=== PATIENT | male | born 1950 | race Hispanic/Latino ===

== ENCOUNTER → 2017-10-25 | Day surgery (SDC) | payer MEDICARE, OTHER ==
[2017-10-22 08:46] LABS: BASOPHILS % 0.5 % (0.0-1.0); EOSINOPHILS # (AUTO) 0.2 (0.0-0.4); EOSINOPHILS % 3.2 % (0.0-6.0); HEMATOCRIT 38.3 % (38.2-49.6); LYMPHOCYTES # (AUTO) 1.9 (1.0-3.2); LYMPHOCYTES % 30.1 % (18.0-39.1); MEAN CORPUSCULAR HGB CONC 33.9 g/dL (31-35); MEAN CORPUSCULAR VOLUME 85.3 fL (81-99); MONOCYTES # (AUTO) 0.7 (0.2-0.8); MONOCYTES % 11.8 % (4.4-11.3); NEUTROPHILS # (AUTO) 3.4 (2.1-6.9); NEUTROPHILS % 54.1 % (38.7-80.0); PLATELET COUNT 170 x10e3/uL (140-360); RED BLOOD COUNT 4.49 x10e6/uL (4.3-5.7); RED CELL DISTRIBUTION WIDTH 12.7 % (11.7-14.4)
[~2017-10-25] MED LIST: ASPIR 8181 MG PO; CINNAMON500 MG PO; FENTANYL CITRATE/PF 100MCG/2 ML INJ ONE; FUROSEMIDE40 MG PO; GLUCOSAMINE 1,1 EACH PO; HYOSCYAMINE SULFATE 0.5 MG/ML AMP ONE; IRBESARTAN-HCT1 EACH PO; ISOSORBIDE MON120 MG PO; LEVOTHYROXINE75 MCG PO; LIDOCAINE HCL 2% LOCAL INJ 5 ML SDV VIAL INJ ONE; MIDAZOLAM HCL 2 MG/2 ML VIAL ONE; MONTELUKAST SOD10 MG PO; NEXIUM40 MG PO; OMEPRAZOLE40 MG PO; POTASSIUM PO; PROPOFOL IV EMULSION 10 MG/ML 50 ML VIAL ONE; SIMETHICONE PO; SUCRALFATE1 GM PO; VITAMIN C PO; VITAMIN D PO; Z.0.DEXILANT60 MG PO; Z.0.LASIX40 MG PO; Z.0.LEVOTHROID50 MCG PO; Z.0.NIASPAN1000 MG PO; Z.0.NORVASC10 MG PO; ZANTAC150 MG PO; ZYRTEC10 M3 PO; [UNRECOGNIZED DRUG - OTHER] PO; [UNRECOGNIZED DRUG - OTHER] PO; [UNRECOGNIZED DRUG - OTHER] PO; losartan PO
--- NOTE | 2017-10-25 09:48 | Operative Report ---
DATE OF PROCEDURE: October 25, 2017 REFERRING PHYSICIAN: Dr. Cody Pierce PROCEDURES PERFORMED 1. Esophagogastroduodenoscopy with biopsies. 2. Colonoscopy with polypectomy. INDICATIONS FOR EGD: Acid reflux. INDICATIONS FOR COLONOSCOPY: Colorectal cancer screening and personal history of colon polyps. MEDICATION: Patient was done under MAC. Please see anesthesiologist's note. PROCEDURE: With the patient in the left lateral decubitus position, the flexible fiberoptic Olympus gastroscope was introduced into the esophagus under direct visualization without any difficulty. The esophagus appeared to be grossly within normal limits. The scope was then advanced with ease into the stomach traversing a small sliding hiatal hernia. Mucosa overlying the antrum revealed some patchy erythema and low-grade edema, and biopsies were obtained and sent to stain for H. pylori. Multiple hyperplastic appearing polyps were noted in the body and some were partially excised with cold biopsy forceps. The pylorus appeared to be of normal contour and shape. It was intubated with ease. The scope was advanced all the way to the 2nd portion of the duodenum. The scope was then withdrawn slowly. Mucosa overlying the proximal 2nd portion and the duodenal bulb appeared to be within normal limits. The scope was then withdrawn back into the stomach and retroflexed. The mucosa overlying the fundus and the cardia appeared to be within normal limits. The scope was then straightened out. The stomach was decompressed. The scope was subsequently withdrawn. Patient tolerated the procedure well. IMPRESSION 1. Normal esophagus. 2. Small sliding hiatal hernia. 3. Gastritis, biopsied. Biopsies sent to stain for Helicobacter pylori. 4. Gastric polyps, body, some partially excised with a cold biopsy forceps. PLAN: Follow up histology. Omeprazole 40 mg 1 p.o. q.a.m. a.c. Patient was then turned around. After adequate lubrication of the anal canal, a flexible fiberoptic Olympus colonoscope was inserted into the rectum with ease and advanced all the way to the cecum. It was then withdrawn slowly. Mucosa overlying the cecum and ascending colon appeared to be within normal limits. Three polyps were hot biopsied from the transverse colon. Two polyps were hot biopsied from the descending colon. Diverticular disease was noted to involve the sigmoid colon. One polyp was hot biopsied from the sigmoid colon. The rectum appeared to be within normal limits. The scope was then retroflexed into the distal rectum and small internal hemorrhoids were noted, none of which was actively bleeding. The scope was then straightened out. The rectosigmoid area, as well as the distal rectal area were decompressed. The scope was subsequently withdrawn. Patient tolerated the procedure well. IMPRESSION 1. Transverse colon polyps, hot biopsied, times 3. 2. Descending colon polyps, hot biopsied, times 2. 3. Diverticulosis. 4. Sigmoid colon polyp, hot biopsied times 1. 5. Internal hemorrhoids, none actively bleeding. PLAN: Follow up histology. Initiate high-fiber and low-fat diet. Initiate high-fiber supplement. Patient will need a followup colonoscopy in 3 years. Job#: [id number] RI cc:COLTON PIERCE MD
== END | disposition home or self-care (01) ==
LOC: ENDO 06:34
PROVIDERS: ATTEND Internal Medicine Gastroenterology
DX: Z12.11 Encounter for screening for malignant neoplasm of colon (principal); K63.5 Polyp of colon; K31.7 Polyp of stomach and duodenum; K29.70 Gastritis, unspecified, without bleeding; K21.9 Gastro-esophageal reflux disease without esophagitis; K44.9 Diaphragmatic hernia without obstruction or gangrene; K57.30 Diverticulosis of large intestine without perforation or abscess without bleeding; K64.8 Other hemorrhoids; I10 Essential (primary) hypertension; Z01.810 Encounter for preprocedural cardiovascular examination; Z01.812 Encounter for preprocedural laboratory examination; Z79.82 Long term (current) use of aspirin
CPT/HCPCS: 36415; 43239; 45384; 85025; 88305; 88312; 93005; J1980; J2001; J2250; 45378

== ENCOUNTER 2018-11-24 19:34 | Emergency (ER) | payer MEDICARE, OTHER ==
[~2018-11-24] VITALS: Ht 177.8 cm; Wt 109.8 kg
[~2018-11-24 19:34] MED LIST changes: -FENTANYL CITRATE/PF 100MCG/2 ML INJ ONE; -HYOSCYAMINE SULFATE 0.5 MG/ML AMP ONE; -LIDOCAINE HCL 2% LOCAL INJ 5 ML SDV VIAL INJ ONE; -MIDAZOLAM HCL 2 MG/2 ML VIAL ONE; -PROPOFOL IV EMULSION 10 MG/ML 50 ML VIAL ONE
--- OUTSIDE RECORDS SUMMARY | 2018-11-24 19:39 | XMS REPORT | CCD ---
Author Author Auto Generated Organization [facility] Address Unknown Phone Unavailable Care Team Providers Care Creative Guru Name Role Phone Marie Dawkins CP Allergies, Adverse Reactions, Alerts Substance Reaction Status influenza virus vaccine, live, Active trivalent penicillins1 Coughing Active Shortness of breath pneumococcal vaccines Active 1spoke to Dr Ashton ([place]) & says that pt did not not have any swelling in the throat, only cough & SOB with Amoxicillin. Problem List Condition Effective Dates Status HTN - Hypertension Active Hypothyroidism Resolved Medications Medication Instructions Start Date End Date Status CIMZIA CIMZIA (Certolizumab Pegol) 04/25/2013 04/25/2013 Completed (Certolizumab Pegol) Prefilled syringe, 200 mg, Drug Prefilled syringe form: MISC, Route: SUB-Q, ONCALL, 04/25/13 10:00:00, Duration: 1 day, Stop date: 04/26/13 9:59:00 certolizumab 400 mg, 2 mL, Route: SUB-Q, Drug 05/23/2013 05/23/2013 Ordered form: DELIA NGUYỄN, Start date: 05/23/13 9:00:00, Stop date: 05/23/13 9:00:00Same as:Cimzia Non-Formulary CIMZIA CIMZIA (Certolizumab Pegol) 04/25/2013 04/25/2013 Completed (Certolizumab Pegol) Prefilled syringe, 200 mg, Drug Prefilled syringe form: MISC, Route: SUB-Q, ONCALL, 04/25/13 10:00:00, Duration: 1 day, Stop date: 04/26/13 9:59:00 certolizumab 400 mg, 2 mL, Route: SUB-Q, Drug 05/08/2013 05/08/2013 Ordered form: SOLN, ONCE, Start date: 05/08/13 10:00:00, Stop date: 05/08/13 10:00:00Same as:Cimzia Non-Formulary Vital Signs Most recent to oldest [Reference Range]: 1 Height 177.8 cm (04/24/2013 10:24:00) Temperature Oral [96.4-99.1 DegF] 98.2 DegF (04/25/2013 10:30:00) Systolic Blood Pressure [90-140 mmHg] 129 mmHg (04/25/2013 10:30:00) Diastolic Blood Pressure [60-90 mmHg] 72 mmHg (04/25/2013 10:30:00) Respiratory Rate [14-20 BRMIN] 18 BRMIN (04/25/2013 10:30:00) Peripheral Pulse Rate [60-100 bpm] 58 bpm *LOW* (04/25/2013 10:30:00) Weight 111.4 kg (04/24/2013 10:24:00)
--- OUTSIDE RECORDS SUMMARY | 2018-11-24 19:39 | XMS REPORT | CCD ---
Author Author Auto Generated Organization [facility] Address Unknown Phone Unavailable Care Team Providers Care Compressor Operator Portable Name Role Phone Marie Dawkins CP Allergies, [...]
--- OUTSIDE RECORDS SUMMARY | 2018-11-24 19:39 | XMS REPORT | Summary of Care ---
Author Organization Unknown Address Unknown Phone Unavailable Encounter [facility] Encntr_arthur(FIN) [id number] Date(s): 04/23/14 - 04/23/14 [facility] Outpatient Imaging - [address] [address] Discharge Disposition: Home Physician Attending: Barbara Dickinson MD Reason for Visit 611.1 - HYPERTROPHY OF Problem List Condition Effective Dates Status Health Status Informant HTN - Active Hypertension(Confirm ed) Hypothyroidism(Confi Resolved rmed) Allergies, Adverse Reactions, Alerts Substance Reaction Severity Status influenza virus vaccine, Active live, trivalent penicillins1 Coughing Active Shortness of breath pneumococcal vaccines Active 1spoke to Dr Ashton ([place]) & says that pt did not not have any swelling in the throat, only cough & SOB with Amoxicillin. Medications No data available for this section Medications Administered During Your Visit No data available for this section Immunizations No data available for this section Social History Social History Type Response
--- OUTSIDE RECORDS SUMMARY | 2018-11-24 19:39 | XMS REPORT | CCD ---
Author Author Auto Generated Organization [facility] Address Unknown Phone Unavailable Care Team Providers Care Batch Roller Operator Name Role Phone Simon Ashton RP Allergies, Adverse Reactions, Alerts Substance Reaction Status [...]
--- OUTSIDE RECORDS SUMMARY | 2018-11-24 19:39 | XMS REPORT | Summary of Care ---
Author Organization Unknown Address Unknown Phone Unavailable Encounter JOSE Piña(ALEXUS) [id number] Date(s): 01/16/14 - 02/14/14 [facility] [address] [address] [place] [address] - [facility] Discharge Disposition: Home Physician Attending: Marie Dawkins MD Reason for Visit 714.0 Vital Signs Most recent to 1 oldest [Reference Range]: Height 177 cm (01/16/14 9:12 AM) Weight 111 kg (01/16/14 9:12 AM) Body Mass Index 35.43 m2 (01/16/14 9:12 AM) Problem List Condition Effective Dates Status Health [...] only cough & SOB with Amoxicillin. Medications certolizumab 400 mg, 2 mL, Route: SUB-Q, Drug form: TG NGUYỄN, Start date: 01/16/14 9:00:0 0, Duration: 12 hr, Stop date: 01/16/14 20:59:00 Notes: Non-Formulary Start Date: 01/16/14 Stop Date: 01/16/14 Status: Completed certolizumab 400 mg, 2 mL, Route: SUB-Q, Drug form: TG NGUYỄN, Start date: 02/13/14 9:00:0 0, Duration: 12 hr, Stop date: 02/13/14 20:59:00 Notes: Non-Formulary Start Date: 02/13/14 Stop Date: 02/13/14 Status: Completed Medications Administered During Your Visit No data available for this section Immunizations No data available for this section Social History Social History Type Response
--- OUTSIDE RECORDS SUMMARY | 2018-11-24 19:39 | XMS REPORT | Continuity of Care Document ---
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 04/30/2015 [facility] [place] 714.0 Active 03/11/2014 [facility] 478.24=ABSCESS, RETROPHARYNGEAL Active 10/08/2012 [facility] RETROPHARYNGEAL ABSCESS Active 09/30/2012 [facility] HTN - Hypertension Active Problem 10/27/2012 [facility] [place],[facility] Hypothyroidism Resolved Problem 10/27/2012 [facility] [place],[facility] HTN - Hypertension Active Problem 10/25/2018 [facility] [place],[facility], [facility] [place] Hypothyroidism Resolved Problem 10/25/2018 [facility] [place],[facility], [facility] [place] RHEUMATOID ARTHRITIS Active [facility] PSORIATIC ARTHROPATHY Active [facility] Medications Medication Details Route Status Patient Instructions Ordering Provider Order Date Source certolizumab 400 mg, 2 mL, Route: SUB-Q, Drug form: ADELINE NGUYỄNALL, Start date: 02/13/14 9:00:00, Duration: 12 hr, Stop date: 02/13/14 20:59:00Notes: Non-Formulary Inactive 02/13/2014 [facility] certolizumab 400 mg, 2 mL, Route: SUB-Q, Drug form: ADELINE NGUYỄNALL, Start date: 01/16/14 9:00:00, Duration: 12 hr, Stop date: 01/16/14 20:59:00Notes: Non-Formulary Inactive 01/16/2014 [facility] certolizumab 400 mg, 2 mL, Route: SUB-Q, Drug form: SOLN, ONCALL, Start date: 01/02/14 9:00:00, Duration: 12 hr, Stop date: 01/02/14 20:59:00Notes: Non-Formulary No Longer Active 01/02/2014 [facility] certolizumab 400 mg, 2 mL, Route: SUB-Q, Drug form: SOLN, ONCALL, Start date: 12/19/13 9:00:00, Duration: 12 hr, Stop date: 12/19/13 20:59:00Notes: Non-Formulary Inactive 12/19/2013 [facility] certolizumab 400 mg, 2 mL, Route: SUB-Q, Drug form: SOLN, ONCALL, Start date: 08/15/13 9:00:00, Duration: 1 day, Stop date: 08/16/13 8:59:00Non-Formulary No Longer Active [place] 08/15/2013 [facility] certolizumab 400 mg, 2 mL, Route: SUB-Q, Drug form: SOLN, ONCALL, Start date: 07/18/13 9:00:00, Duration: 1 day, Stop date: 07/19/13 8:59:00Non-Formulary Inactive [place] 07/18/2013 [facility] certolizumab 400 mg, 2 mL, Route: SUB-Q, Drug form: SOLN, ONCALL, Start date: 06/20/13 9:30:00, Duration: 30 day, Stop date: 07/20/13 9:29:00Non-Formulary No Longer Active [place] 06/20/2013 [facility] certolizumab 400 mg, 2 mL, Route: SUB-Q, Drug form: SOLN, ONCE, Start date: 05/23/13 9:00:00, Stop date: 05/23/13 9:00:00Same as:Cimzia Non-Formulary Inactive [place] 05/23/2013 [facility] certolizumab 400 mg, 2 mL, Route: SUB-Q, Drug form: SOLN, ONCE, Start date: 05/08/13 10:00:00, Stop date: 05/08/13 10:00:00Same as:Cimzia Non-Formulary Inactive [place] 05/08/2013 [facility] CIMZIA (Certolizumab Pegol) Prefilled syringe CIMZIA (Certolizumab Pegol) Prefilled syringe, 200 mg, Drug form: MISC, Route: SUB- Q, ONCALL, 04/25/13 10:00:00, Duration: 1 day, Stop date: 04/26/13 9:59:00 Inactive [place] 04/25/2013 [facility] Allergies, Adverse Reactions, Alerts Substance Category Reaction Severity Reaction type Status Date Reported Comments Source influenza virus vaccine, live, trivalent Assertion Drug allergy Active [facility] penicillins<sup>1</sup> Assertion Coughing, Shortness of breath Drug allergy Active 1spoke to Dr Ashton (ID) & says that pt did not not have any swelling in the throat, only cough & SOB with Amoxicillin. [facility] pneumococcal vaccines Assertion Drug allergy Active [facility] Immunizations Immunization Date Given Site Status Last Updated Comments Source Results Order Name Results Value Reference Range Date Interpretation Comments Source Chest 2 views DX Chest 2 views DX EXAM: XR CHEST 2 VIEWS DATE: 10/22/2018 10:50 CDT INDICATION: - gerd, wheezing on auscultation ADDITIONAL INFORMATION: None. COMPARISON: Chest x-ray 08/08/2017 TECHNIQUE: PA and lateral chest radiographs. Number of images: 2 FINDINGS: Lines and tubes and hardware: None. Lungs: There is right lower lobe subtle increased linear density. Pleura: There is stable right apical pleural thickening. Pneumothorax: None Vascularity: Normal pulmonary vascularity.. Heart size: Normal. The mediastinal contours are normal. Bones: No acute bony abnormality is identified. Sternoxiphoid junction bony hypertrophy is seen. Soft Tissues: Unremarkable. IMPRESSION: 1. Right lower lobe subtle linear increased density may represent superimposition of pulmonary vessels and the right lower posterior rib versus subsegmental atelectasis and/or minimal airspace disease secondary to inflammation/infection. 2. Line(s), tube(s) and hardward as above. 10/22/2018 - - Read by: Branden Dowell MD Dictated Date/time: 10/22/18 11:46 Electronically Signed by: Branden Dowell MD 10/22/18 11:[address] [facility] Chest 2 views DX Chest 2 views DX EXAM: XR CHEST 2 VIEWS DATE: 08/08/2017 10:15 AM FULL SERVICE SUPERVISOR INDICATION: - R05 Cough COMPARISON: 12/19/2013 TECHNIQUE: PA and lateral chest radiographs FINDINGS: Lines, tubes and hardware: None. Lungs and pleura: No pulmonary or pleural based abnormality is identified. Pulmonary vascularity is normal. Heart and mediastinum: The heart size is normal for technique. The mediastinal contours are normal. Tortuosity of the descending thoracic aorta is noted. Bones: Multilevel degenerative disc disease with anterior osteophytes are noted. IMPRESSION: No acute cardiopulmonary abnormality. No significant change from 12/19/2013. 08/08/2017 - - Read by: Alexa Stapleton MD Dictated Date/time: 08/08/17 11:33 Electronically Signed by: Alexa Stapleton 08/08/17 11:[address] [facility] Spine lumbar wo contrast MRI Spine lumbar wo contrast MRI MRI LUMBAR SPINE WITHOUT CONTRAST 09/22/2016 1:47 PM FULL SERVICE SUPERVISOR COMPARISON: 04/27/2006 radiograph exam. TECHNIQUE: Sagittal T1, sagittal T2 with fat saturation, axial T1 and axial T2 images were obtained. No intravenous gadolinium was given. FINDINGS: The conus medullaris terminates at the L1 level. Mild dextrocurvature of the lumbar spine is present. T12-L1: Unremarkable. L1-L2: Unremarkable. L2-L3: No central canal stenosis. Disc bulge encroachment into the bilateral neural foramina is seen with mild to moderate bilateral foraminal stenosis, exerting minimal mass effect on the L2 exiting nerve roots. L3-L4: 3 mm disc bulge is seen with moderate ligamenta flava redundancy and mild central canal stenosis. Severe left foraminal stenosis and moderate right foraminal stenosis are present with corresponding mass effect on bilateral L3 nerve roots. L4-L5: Circumferential annular fissures are present. 5.7 mm disc bulge with severe ligamenta flava redundancy are present with severe thecal sac stenosis which measures 6 mm AP dimension. Moderate to severe bilateral foraminal stenosis is present with mass effect on the L4 nerve roots. L5-S1: Broad-based central 6 mm disc protrusion is present with mild central canal stenosis. Right foraminal and extraforaminal disc osteophyte complex is present with mass effect on the right S1 descending nerve root and severe right foraminal stenosis. Moderate to severe left foraminal stenosis is also present. IMPRESSION: 1. Multilevel disc degenerative disease and spondylosis. 2. L2-L3 mild to moderate bilateral foraminal stenosis. L3-L4 moderate right foraminal stenosis and severe left foraminal stenosis as above. 3. L4-L5 severe central canal stenosis and moderate to severe bilateral foraminal stenosis. 4. L5-S1 central disc protrusion with mild central canal stenosis. Right foraminal and extraforaminal disc osteophyte complex with severe right foraminal stenosis, right lateral recess stenosis, moderate to severe left foraminal stenosis with mass effect on the bilateral L5 nerve roots and right S1 nerve root. 09/22/2016 - - Read by: Nj Hollingsworth MD Dictated Date/time: 09/22/16 15:52 Electronically Signed by: Nj Hollingsworth MD 09/22/16 17:12 FINAL REPORT [facility] [place] Spine cervical wo contrast MRI Spine cervical wo contrast MRI MRI CERVICAL SPINE WITHOUT CONTRAST 09/22/2016 1:46 PM FULL SERVICE SUPERVISOR TECHNIQUE: Multiplanar multisequence imaging of the cervical spine was performed without administration of intravenous gadolinium. COMPARISON: No prior exam. FINDINGS: Multilevel disc desiccation is seen. C1-C2: Unremarkable. C2-C3: Moderate right facet osteoarthrosis with mild right foraminal stenosis. No central canal stenosis. C3-C4: Mild to moderate central canal stenosis is present due to ligamenta flava redundancy and approximately 3 mm disc bulge with mild cord indentation. Moderate left facet osteoarthrosis is present. Bilateral foraminal osteophytes are present, with severe left foraminal stenosis and moderate to severe right foraminal stenosis. C4-C5: Severe left facet osteoarthrosis with severe left foraminal stenosis. No central canal stenosis. C5-C6: Severe left facet osteoarthrosis with severe left foraminal stenosis. No central canal stenosis. C6-C7: Moderate left facet osteoarthrosis with 2 mm disc bulge. No central canal stenosis. Kham-sf-[id number] bilateral foraminal stenosis. C7-T1: 3.4 mm disc bulge is present with mild central canal stenosis. No direct cord indentation. Mild bilateral facet osteoarthrosis and foraminal osteophytes with moderate to severe bilateral foraminal stenosis. The cervical cord signal is unremarkable without MRI evidence of myelomalacia. IMPRESSION: 1. Multilevel disc degenerative disease and spondylosis. 2. Several levels of mild to moderate central canal stenosis and corresponding cord indentation, most prominent at the C3-C4 and C7-T1 levels. No MRI evidence of spinal cord myelomalacia. 3. Multilevel severe left foraminal stenosis. C3-C4 moderate to severe right foraminal stenosis, C7-T1 moderate to severe bilateral foraminal stenosis also present. 09/22/2016 - - Read by: Nj Hollingsworth MD Dictated Date/time: 09/22/16 15:53 Electronically Signed by: Nj Hollingsworth MD 09/22/16 17:30 FINAL REPORT FLAVIO Sebastian Breast Limited Uni US Breast Limited Uni US - DIGITAL MAMMO DX JONATHAN MA - BREAST LIMITED UNI US/L MALE BILATERAL DIGITAL DIAGNOSTIC MAMMOGRAM WITH CAD AND TARGETED LEFT ULTRASOUND: 11/26/2014 CLINICAL: Mastodynia. Current study was evaluated with a Computer Aided Detection (CAD) system. Comparison is made to exam dated: 04/23/2014 mammogram - [facility]. No significant masses, calcifications, or other findings are seen in either breast on the mammogram or targeted ultrasound. IMPRESSION: NEGATIVE, TARGETED ULTRASOUND NEGATIVE There is no mammographic or targeted sonographic evidence of malignancy. Follow-up with ACR/ACS guidelines. SUMMARY: I discussed these findings with the patient in person at the time of examination. María Gonzalez lpp/penrad:11/26/2014 16:01:58 Commercial Real Estate Broker: Marion GALEANA(Destini)(M), [facility] This exam was dictated and interpreted by [id number] for FLAVIO Sebastian. letter sent: Normal exam Mammogram BI-RADS: 1 Negative Ultrasound BI-RADS: 1 Negative 11/26/2014 - - Read by: María Gonzalez MD Dictated Date/time: 11/26/14 16:01 Electronically Signed by: María Gonzalez MD 11/26/14 16:01 FINAL REPORT FLAVIO Sebastian Digital Mammo DX Jonathan MA Digital Mammo DX Jonathan MA - DIGITAL MAMMO DX JONATHAN MA - BREAST LIMITED UNI US/L MALE BILATERAL DIGITAL DIAGNOSTIC MAMMOGRAM WITH CAD AND TARGETED LEFT ULTRASOUND: 11/26/2014 CLINICAL: Mastodynia. Current study was evaluated with a Computer Aided Detection (CAD) system. Comparison is made to exam dated: 04/23/2014 mammogram - [facility]. No significant masses, calcifications, or other findings are seen in either breast on the mammogram or targeted ultrasound. IMPRESSION: NEGATIVE, TARGETED ULTRASOUND NEGATIVE There is no mammographic or targeted sonographic evidence of malignancy. Follow-up with ACR/ACS guidelines. SUMMARY: I discussed these findings with the patient in person at the time of examination. María Gonzalez lpp/penrad:11/26/2014 16:01:58 Commercial Real Estate Broker: Marion GALEANA(R)(M), [facility] This exam was dictated and interpreted by [id number] for Jaz. letter sent: Normal exam Mammogram BI-RADS: 1 Negative Ultrasound BI-RADS: 1 Negative 11/26/2014 - - Read by: María Gonzalez MD Dictated Date/time: 11/26/14 16:01 Electronically Signed by: María Gonzalez MD 11/26/14 16:01 FINAL REPORT FLAVIO Sebastian Digital Mammo DX Jonathan MA Digital Mammo DX Jonathan MA - DIGITAL MAMMO DX JONATHAN MA MALE BILATERAL DIGITAL DIAGNOSTIC MAMMOGRAM WITH CAD: 04/23/2014 CLINICAL: Lump Or Mass In Breast. Current study was evaluated with a Computer Aided Detection (CAD) system. No prior exams were available for comparison. No significant masses, calcifications, or other findings are seen in either breast. IMPRESSION: NEGATIVE There is no mammographic evidence of malignancy. Follow-up with ACR/ACS guidelines. María Gonzalez lpp/penrad:04/23/2014 14:27:01 Commercial Real Estate Broker: Marion GALEANA(R)(M), [facility] This exam was dictated and interpreted by [id number] for FLAVIO Sebastian. letter sent: Normal exam Mammogram BI-RADS: 1 Negative 04/23/2014 - - Read by: María Gonzalez MD Dictated Date/time: 04/23/14 14:27 Electronically Signed by: María Gonzalez MD 04/23/14 14:27 FINAL REPORT FLAVIO Sebastian Chest 2 views Chest 2 views CHEST RADIOGRAPHY CLINICAL HISTORY: Chest pain. COMPARISON IMAGIN09/11/2012 FINDINGS: Two views of the chest were acquired and submitted for evaluation. There has been no significant interval change. No pleural fluid is identified. The contour of the cardiac silhouette is within normal limits. There is no significant pulmonary consolidation or nodularity. Bones are unremarkable. IMPRESSION: No significant abnormality. 12/19/2013 - - Read by: Leatha Nguyen DO Dictated Date/time: 12/19/13 14:47 Electronically Signed by: Leatha Nguyen DO 12/19/13 14:47 FINAL REPORT [facility] Sebastian Vital Signs Vital Sign Value Date Comments Source Height 177 cm 01/16/2014 [facility] BMI Calculated 35.43 01/16/2014 [facility] Weight 111 01/16/2014 [facility] Heart Rate 57 01/02/2014 [facility] Systolic (mm Hg) 151 01/02/2014 [facility] Diastolic (mm Hg) 71 01/02/2014 [facility] Temperature Oral (F) 97.9 F 01/02/2014 [facility] Diastolic (mm Hg) 78 12/19/2013 [facility] Systolic (mm Hg) 155 12/19/2013 [facility] Heart Rate 56 12/19/2013 [facility] Temperature Oral (F) 98.1 F 12/19/2013 [facility] Height 177 cm 12/18/2013 [facility] BMI Calculated 35.43 12/18/2013 [facility] Weight 111 12/18/2013 [facility] Systolic (mm Hg) 114 06/20/2013 [facility] Temperature Oral (F) 97.8 F 06/20/2013 [facility] Diastolic (mm Hg) 67 06/20/2013 [facility] Respitory Rate 17 06/20/2013 [facility] Heart Rate 46 06/20/2013 [facility] Weight 111.4 06/19/2013 [facility] Height 177.8 cm 06/19/2013 [facility] Respitory Rate 18 04/25/2013 [place] Systolic (mm Hg) 129 04/25/2013 [facility] Diastolic (mm Hg) 72 04/25/2013 [facility] Temperature Oral (F) 98.2 F 04/25/2013 [facility] Heart Rate 58 04/25/2013 [facility] Weight 111.4 04/24/2013 [facility] Height 177.8 cm 04/24/2013 [facility] Encounters Location Location Details Encounter Type Encounter Number Reason For Visit Attending Provider ADM Date DC Date Status Source [facility] Outpatient [id number] 478.24=ABSCESS, RETROPHARYNGEAL ZAHER SHEBIB 10/11/2012 Active [facility] [place] [id number] 714.0 WILD [place] 04/25/2013 Active [facility] [place] [id number] 714.0 WILD [place] 06/19/2013 Active [facility] [place] [id number] 714.0 WILD [place] 08/15/2013 Active [facility] OP Recurring [id number] Wild [place] 12/12/2013 01/11/2014 [facility] [place] [facility] [id number] Joshua Kellerevette 12/19/2013 12/20/2013 [facility] [place] [facility] OP Recurring [id number] Wild Juancho 01/16/2014 02/15/2014 [facility] [place] [facility] [id number] Barbara Dickinson 04/23/2014 04/24/2014 [facility] [place] [facility] [place] [facility] [id number] Ephraim Krueger 11/26/2014 11/27/2014 [facility] [place] [facility] [place] [facility] [id number] Peggy Whiting 09/22/2016 09/23/2016 [facility] [place] [facility] [place] [facility] [id number] Ephraim Krueger 08/08/2017 08/09/2017 [facility] [place] [facility] [place] Out[facility] [id number] Reid Pierce 10/22/2018 10/23/2018 [facility] Outpatient [id number] RETROPHARYNGEAL ABSCESS FAMILIA Tracey [facility] Procedures Procedure Code Date Perfomer Comments Source
--- OUTSIDE RECORDS SUMMARY | 2018-11-24 19:39 | XMS REPORT | CCD ---
Author Author Auto Generated Organization [facility] Address Unknown Phone Unavailable Care Team Providers Care Plant Breeder Scientist Name Role Phone Marie Dawkins CP Allergies, [...] Medication Instructions Start Date End Date Status certolizumab 400 mg, 2 mL, Route: SUB-Q, Drug 07/18/2013 07/18/2013 Completed form: TG NGUYỄN, Start date: 07/18/13 9:00:00, Duration: 1 day, Stop date: 07/19/13 8:59:00Non-Formulary certolizumab 400 mg, 2 mL, Route: SUB-Q, Drug 06/20/2013 07/17/2013 Discontinued form: TG NGUYỄN, Start date: 06/20/13 9:30:00, Duration: 30 day, Stop date: 07/20/13 9:29:00Non-Formulary Vital Signs Most recent to oldest [Reference Range]: 1 Height 177.8 cm (06/19/2013 15:11:00) Temperature Oral [96.4-99.1 DegF] 97.8 DegF (06/20/2013 08:42:00) Systolic Blood Pressure [90-140 mmHg] 114 mmHg (06/20/2013 08:42:00) Diastolic Blood Pressure [60-90 mmHg] 67 mmHg (06/20/2013 08:42:00) Respiratory Rate [14-20 BRMIN] 17 BRMIN (06/20/2013 08:42:00) Peripheral Pulse Rate [60-100 bpm] 46 bpm *LOW* (06/20/2013 08:42:00) Weight 111.4 kg (06/19/2013 15:11:00)
--- OUTSIDE RECORDS SUMMARY | 2018-11-24 19:39 | XMS REPORT | Summary of Care ---
Author Author [facility] [place] Organization [facility] [place] Address Unknown Phone Unavailable Encounter [facility] Encntr_alidrake(FIN) [id number] Date(s): 09/22/16 - 09/22/16 [facility] [place] [address] [phone] Discharge Disposition: Home or Self Care Attending Physician: Peggy Whiting MD Vital Signs No data available for this section Problem List Condition Effective Dates Status Health [...] Medications No data available for this section Results No data available for this section Immunizations No data available for this section Procedures No data available for this section Social History Social History Type Response Assessment and Plan No data available for this section
--- OUTSIDE RECORDS SUMMARY | 2018-11-24 19:39 | XMS REPORT | Summary of Care ---
Author Author [facility] Outpatient Imaging [facility] Outpatient Imaging [facility] Address Unknown Phone Unavailable Encounter HQ Breannentr_arthur(FIN) [id number] Date(s): 10/22/18 - 10/22/18 [facility] Imaging [facility] [address] [facility], [address] [place] [phone] Discharge Disposition: Home or Self Care Attending Physician: Reid Pierce MD Referring Physician: Reid Pierce MD Vital Signs No data available for this section Problem List Condition Effective Dates Status Health Status Informant HTN - Active Hypertension(Confirm ed) Hypothyroidism(Confi Resolved rmed) Allergies, Adverse Reactions, Alerts Substance Reaction Severity Status penicillins1 Shortness of breath Active Coughing influenza virus vaccine, Active live, trivalent pneumococcal vaccines Active 1spoke to Dr Ashton [...]
--- OUTSIDE RECORDS SUMMARY | 2018-11-24 19:39 | XMS REPORT | CCD ---
Author Author Auto Generated Organization [facility] Address Unknown Phone Unavailable Care Team Providers Care House Mover Supervisor Name Role Phone Mraie Dawkins CP Allergies, Adverse Reactions, Alerts Substance [...]
--- OUTSIDE RECORDS SUMMARY | 2018-11-24 19:39 | XMS REPORT | CCD ---
Author Author Auto Generated Organization [facility] Out[facility] [place] Address Unknown Phone Unavailable Care Team Providers Care Assistive Technology Trainer Name Role Phone Marie Dawkins CP Allergies, [...]
--- OUTSIDE RECORDS SUMMARY | 2018-11-24 19:39 | XMS REPORT | CCD ---
Author Author Auto Generated Organization [facility] Address Unknown Phone Unavailable Care Team Providers Care Director Instrumentation Name Role Phone Marie Dawkins CP Allergies, [...]
--- OUTSIDE RECORDS SUMMARY | 2018-11-24 19:39 | XMS REPORT | Summary of Care ---
Author Organization Unknown Address Unknown Phone Unavailable Encounter [facility] Encntr_arthur(FIN) [id number] Date(s): 12/19/13 - 12/19/13 [facility] Outpatient Imaging - [address] [address] [place] Discharge Disposition: Home Physician Attending: Joshua Schultz MD Reason for Visit 786.59 - CHEST PAIN NEC Problem List Condition Effective Dates Status Health [...]
--- OUTSIDE RECORDS SUMMARY | 2018-11-24 19:39 | XMS REPORT | Summary of Care ---
Author Organization Unknown Address Unknown Phone Unavailable Encounter JOSE Piña(ALEXUS) [id number] Date(s): 12/12/13 - 01/10/14 [facility] [address] [place] [address] - [facility] Discharge Disposition: Home Physician Attending: Marie Dawkins MD Reason for Visit 714.0 Vital Signs Most recent to 1 2 oldest [Reference Range]: Height 177 cm (12/18/13 2:15 PM) Temperature Oral 97.9 DegF 98.1 DegF [96.4-99.1 DegF] (01/02/14 9:00 AM) (12/19/13 9:34 AM) Systolic Blood 151 mmHg 155 mmHg Pressure [90-140 *HI* *HI* mmHg] (01/02/14 9:00 AM) (12/19/13 9:34 AM) Diastolic Blood 71 mmHg 78 mmHg Pressure [60-90 (01/02/14 9:00 AM) (12/19/13 9:34 AM) mmHg] Peripheral Pulse 57 bpm 56 bpm Rate [60-100 bpm] *LOW* *LOW* (01/02/14 9:00 AM) (12/19/13 9:34 AM) Weight 111 kg (12/18/13 2:15 PM) Body Mass Index 35.43 m2 (12/18/13 2:15 PM) Problem List Condition Effective Dates Status Health [...] mg, 2 mL, Route: SUB-Q, Drug form: SOLNADELINEALL, Start date: 01/02/14 9:00:0 0, Duration: 12 hr, Stop date: 01/02/14 20:59:00 Notes: Non-Formulary Start Date: 01/02/14 Stop Date: 01/11/14 Status: Discontinued certolizumab 400 mg, 2 mL, Route: SUB-Q, Drug form: SOLN, ONCALL, Start date: 12/19/13 9:00:0 0, Duration: 12 hr, Stop date: 12/19/13 20:59:00 Notes: Non-Formulary Start Date: 12/19/13 Stop Date: 12/19/13 Status: Completed Medications Administered During Your Visit No data available for this section Immunizations No data available for this section Social History Social History Type Response
--- OUTSIDE RECORDS SUMMARY | 2018-11-24 19:39 | XMS REPORT | Summary of Care ---
Author Organization Unknown Address Unknown Phone Unavailable Encounter HQ Encntr_alidrake(FIN) [id number] Date(s): 11/26/14 - 11/26/14 [facility] Outpatient Imaging - [place] [address] [place] [address]- [facility] [phone] Discharge Disposition: Home Physician Attending: Ephraim Krueger MD Vital Signs No data available for [...]
--- OUTSIDE RECORDS SUMMARY | 2018-11-24 19:39 | XMS REPORT | CCD ---
Author Author Auto Generated Organization [facility] Address Unknown Phone Unavailable Care Team Providers Care Information Management Officer Name Role Phone Marie Dawkins CP Allergies, [...]
--- OUTSIDE RECORDS SUMMARY | 2018-11-24 19:39 | XMS REPORT | Summary of Care ---
Author Author [facility] Outpatient Imaging [facility] Outpatient Imaging [facility] Address Unknown Phone Unavailable Encounter HQ Breannentr_arthur(FIN) [id number] Date(s): 08/08/17 - 08/08/17 [facility] [address] [facility], [address] [place] [phone] Discharge Disposition: Home or Self Care Attending Physician: Ephraim Krueger MD Vital Signs No data [...]
--- OUTSIDE RECORDS SUMMARY | 2018-11-24 19:39 | XMS REPORT | CCD ---
Author Author Auto Generated Organization [facility] Address Unknown Phone Unavailable Care Team Providers Care Post Doctoral Fellow Name Role Phone Marie Dawkins CP Allergies, [...] 400 mg, 2 mL, Route: SUB-Q, Drug 08/15/2013 09/14/2013 Discontinued form: TG NGUYỄN, Start date: 08/15/13 9:00:00, Duration: 1 day, Stop date: 08/16/13 8:59:00Non-Formulary
--- NOTE | 2018-11-24 21:04 | Diagnostic Imaging Report ---
EXAMINATION: Head CT without contrast. HISTORY:High blood pressure. COMPARISON:None. TECHNIQUE: Multidetector axial images were obtained from the foramen magnum to the vertex without contrast. The images were reconstructed using brain and bone algorithms. Thin section brain images were reformatted into coronal and sagittal planes. Dose modulation, iterative reconstruction, and/or weight based adjustment of the mA/kV was utilized to reduce the radiation dose to as low as reasonably achievable. Intravenous contrast: None IMAGE QUALITY: Acceptable. FINDINGS: Skull/scalp: No lytic or blastic. lesions. No surgical changes. Parenchyma: Nonspecific bilateral frontoparietal confluent periventricular and patchy subcortical and deep white matter hypodensity are likely related to small vessel ischemic changes. No acute hemorrhage, mass or acute major vascular territorial infarct. Arteries: No density suggestive of thrombosis. Dural sinuses: No abnormal density suggestive of thrombosis. Ventricles: No hydrocephalus or displacement. Extra-axial spaces: No abnormal density. Brain volume: Normal for age. Craniocervical junction: No mass, Chiari malformation, or basilar invagination. Sella: No mass. Paranasal/mastoid sinuses: Imaged portions unremarkable. IMPRESSION: 1. No acute intracranial abnormality, particularly no acute hemorrhage, mass or acute major vascular territorial infarct. 2. Moderate supratentorial white matter microvascular ischemic changes. 3. Generalized age-related cerebral volume loss. Signed by: Dr. Richa Joaquin M.D. on 11/24/2018 9:01 PM
== END 2018-11-24 21:42 | disposition home or self-care (01) ==
LOC: ER 19:34
DX: I10 Essential (primary) hypertension (principal); R09.81 Nasal congestion
CPT/HCPCS: 70450; 99283

== ENCOUNTER 2019-01-18 13:00 | Emergency (ER) | payer MEDICARE, OTHER ==
[~2019-01-18] VITALS: Ht 177.8 cm; Wt 117.5 kg
--- OUTSIDE RECORDS SUMMARY | 2019-01-18 13:04 | XMS REPORT | Continuity of Care Document ---
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 04/30/2015 [facility] [place] 714.0 Active 03/11/2014 [facility] 478.24=ABSCESS, RETROPHARYNGEAL Active 10/08/2012 [facility] RETROPHARYNGEAL ABSCESS Active 09/30/2012 [facility] HTN - Hypertension Active Problem 10/27/2012 [facility] [place],[facility] Hypothyroidism Resolved Problem 10/27/2012 [facility] [place],[facility] HTN - Hypertension Active Problem 10/25/2018 [facility] [place],[facility], [facility] [place] Hypothyroidism Resolved Problem 10/25/2018 [facility] [place],[facility], [facility] [place] RHEUMATOID ARTHRITIS Active [facility] PSORIATIC ARTHROPATHY Active [facility] Medications Medication Details Route Status Patient Instructions Ordering Provider Order Date Source Cinnamon Bark (Cinnamon) 500 Mg Capsule, 500 Oral Twice A Day Active 06/08/2015 [facility] Esomeprazole Magnesium (Nexium) 40 Mg Capsule., 40 Mg Oral Daily Active 06/08/2015 [facility] Luxembourgish Ginseng Root (Luxembourgish Ginseng) 1,000 Mg Tablet, 1000 Mg Oral Daily Active 06/08/2015 [facility] Levothyroxine Sodium (Levothroid) 50 Mcg Tablet, 50 Mcg Oral Daily Active 06/08/2015 [facility] Losartan , Oral Daily Active 06/08/2015 [facility] Neuogenics , Oral Daily Active 06/08/2015 [facility] Potassium , Oral Daily Active 06/08/2015 [facility] Simethicone , Oral As Needed Active 06/08/2015 [facility] Vitamin C , Oral Daily Active 06/08/2015 [facility] Vitamin D , Oral Daily Active 06/08/2015 [facility] Xantax , Oral As Needed Active 06/08/2015 [facility] Amlodipine Besylate (Norvasc) 10 Mg Tablet, 10 Mg Oral Daily Active 06/24/2014 [facility] Dexlansoprazole (Dexilant) 60 Mg , 60 Mg Oral Daily Active 06/24/2014 [facility] certolizumab 400 mg, 2 mL, Route: SUB-Q, Drug form: SOLJuhi, ONCALL, Start date: 02/13/14 9:00:00, Duration: 12 hr, Stop date: 02/13/14 20:59:00Notes: Non-Formulary Inactive 02/13/2014 [facility] certolizumab 400 mg, 2 mL, Route: SUB-Q, Drug form: SOLN, ONCALL, Start date: 01/16/14 9:00:00, Duration: 12 hr, Stop date: 01/16/14 20:59:00Notes: Non-Formulary Inactive 01/16/2014 [facility] certolizumab 400 mg, 2 mL, Route: SUB-Q, Drug form: SOLN, ONCALL, Start date: 01/02/14 9:00:00, Duration: 12 hr, Stop date: 01/02/14 20:59:00Notes: Non-Formulary No Longer Active 01/02/2014 [facility] certolizumab 400 mg, 2 mL, Route: SUB-Q, Drug form: SOLN ONCALL, Start date: 12/19/13 9:00:00, Duration: 12 hr, Stop date: 12/19/13 20:59:00Notes: Non-Formulary Inactive 12/19/2013 [facility] certolizumab 400 mg, 2 mL, Route: SUB-Q, Drug form: SOLN, ONCALL, Start date: 08/15/13 9:00:00, Duration: 1 day, Stop date: 08/16/13 8:59:00Non-Formulary No Longer Active [place] 08/15/2013 [facility] certolizumab 400 mg, 2 mL, Route: SUB-Q, Drug form: SOLN, ONCALL, Start date: 07/18/13 9:00:00, Duration: 1 day, Stop date: 07/19/13 8:59:00Non-Formulary Inactive [place] 07/18/2013 [facility] certolizumab 400 mg, 2 mL, Route: SUB-Q, Drug form: SOLN, ONCALL, Start date: 06/20/13 9:30:00, Duration: 30 day, Stop date: 07/20/13 9:29:00Non-Formulary No Longer Active [place] 06/20/2013 [facility] certolizumab 400 mg, 2 mL, Route: SUB-Q, Drug form: SOLN, ONCE, Start date: 05/23/13 9:00:00, Stop date: 05/23/13 9:00:00Same as:Cimzia Non-Formulary Inactive [place] 05/23/2013 [facility] certolizumab 400 mg, 2 mL, Route: SUB-Q, Drug form: SOLN, ONCE, Start date: 05/08/13 10:00:00, Stop date: 05/08/13 10:00:00Same as:Cimzia Non-Formulary Inactive [place] 05/08/2013 [facility] CIMZIA (Certolizumab Pegol) Prefilled syringe CIMZIA (Certolizumab Pegol) Prefilled syringe, 200 mg, Drug form: MISC, Route: SUB- Q, ONCALL, 04/25/13 10:00:00, Duration: 1 day, Stop date: 04/26/13 9:59:00 Inactive [place] 04/25/2013 [facility] Aspirin (Aspir 81) [address] [facility] Cetirizine Hcl (Zyrtec) 10 Mg Capsule As Needed Active THERAPEUTICALLY SUBSTITUTED WITH LORATIDINE 10MG [facility] Furosemide 40 Mg Tablet Daily as needed for Prn [facility] Gluc Wasserman/Chondro Wasserman A/Vit C/Mn (Glucosamine 1,500 Complex Cp) [address] [facility] Irbesartan/Hydrochlorothiazide (Irbesartan-Hctz 150-12.5 Mg Tb) 1 Each Tablet Daily Active [facility] Levothyroxine Sodium 75 Mcg Tablet Daily Active [facility] Niacin (Niaspan) 1,000 Mg Tablet.sa Daily Active [facility] Omeprazole 40 Mg Capsule.dr Daily Active [facility] Ranitidine Hcl (Zantac) 150 Mg Tablet Daily Active THERAPEUTICALLY SUBSTITUTED WITH PEPCID 20MG [facility] Sucralfate 1 Gm Tablet Three Times A Day Active [facility] Allergies, Adverse Reactions, Alerts Substance Category Reaction Severity Reaction type Status Date Reported Comments Source Methotrexate Unknown Allergy to Substance Active 06/10/2015 [facility] Cefdinir Unknown Allergy to Substance Active 06/10/2015 [facility] Leflunomide Unknown Allergy to Substance Active 06/10/2015 [facility] Golimumab Unknown Allergy to Substance Active 06/10/2015 [facility] Penicillin Unknown Allergy to Substance Active 02/09/2017 [facility] Doxycycline N/V, RASH Unknown Allergy to Substance Active 02/09/2017 [facility] METHOTRXATE UNKNOWN Unknown Allergy to Substance Active 02/13/2017 [facility] influenza virus vaccine, live, trivalent Assertion Drug allergy Active [facility] penicillins<sup>1</sup> Assertion Coughing, Shortness of breath Drug allergy Active 1spoke to Dr Miles (ID) & says that pt did not not have any swelling in the throat, only cough & SOB with Amoxicillin. [facility] pneumococcal vaccines Assertion Drug allergy Active [facility] Immunizations Immunization Date Given Site Status [...] Branden Dowell MD 10/22/18 11:53 FINAL REPORT [facility] Chest 2 views DX Chest 2 views DX EXAM: XR CHEST 2 VIEWS DATE: 08/08/2017 10:15 AM [facility]IR[facility] NUTRITION SPECIALIST INDICATION: - R05 Cough COMPARISON: 12/19/2013 TECHNIQUE: [...] by: Alexa Stapleton 08/08/17 11:35 FINAL REPORT [facility] Spine lumbar wo contrast MRI Spine lumbar wo contrast MRI MRI LUMBAR SPINE WITHOUT CONTRAST 09/22/2016 1:47 PM [facility] NUTRITION SPECIALIST COMPARISON: 04/27/2006 radiograph exam. TECHNIQUE: Sagittal T1, [...] Hollingsworth MD 09/22/16 17:12 FINAL REPORT SHANTI Sebastian Spine cervical wo contrast MRI Spine cervical wo contrast MRI MRI CERVICAL SPINE WITHOUT CONTRAST 09/22/2016 1:46 PM [facility] NUTRITION SPECIALIST TECHNIQUE: Multiplanar multisequence imaging of the cervical [...] mm disc bulge. No central canal stenosis. [id number] bilateral foraminal stenosis. C7-T1: 3.4 mm disc [...] Nj Hollingsworth MD 09/22/16 17:30 [facility] [place] Breast Limited Uni US Breast Limited Uni US - DIGITAL MAMMO DX JONATHAN MA - BREAST LIMITED UNI US/L MALE BILATERAL DIGITAL DIAGNOSTIC MAMMOGRAM WITH CAD AND TARGETED LEFT ULTRASOUND: 11/26/2014 CLINICAL: Mastodynia. Current study was evaluated with a Computer Aided Detection (CAD) system. Comparison is made to exam dated: 04/23/2014 mammogram - [facility]. No significant masses, calcifications, or other findings are seen in either breast on the mammogram or targeted ultrasound. IMPRESSION: NEGATIVE, TARGETED ULTRASOUND NEGATIVE There is no mammographic or targeted sonographic evidence of malignancy. Follow-up with ACR/ACS guidelines. SUMMARY: I discussed these findings with the patient in person at the time of examination. María Gonzalez lpp/penrad:11/26/2014 16:01:58 Whipped Topping Mixer: Marino Graham RT(R)(M), [facility] This exam was dictated and interpreted by [id number] for FLAVIO Sebastian. letter sent: Normal exam Mammogram BI-RADS: 1 Negative Ultrasound BI-RADS: 1 Negative 11/26/2014 - - Read by: María Gonzalez MD Dictated Date/time: 11/26/14 16:01 Electronically Signed by: María Gonzalez MD 11/26/14 16:01 FINAL REPORT FLAVIO Sebastain Digital Mammo DX Jonathan MA Digital Mammo DX Jonathan MA - DIGITAL MAMMO DX JONATHAN MA - BREAST LIMITED UNI US/L MALE BILATERAL DIGITAL DIAGNOSTIC MAMMOGRAM WITH CAD AND TARGETED LEFT ULTRASOUND: 11/26/2014 CLINICAL: Mastodynia. Current study was evaluated with a Computer Aided Detection (CAD) system. Comparison is made to exam dated: 04/23/2014 mammogram - [facility]. No significant masses, calcifications, or other findings are seen in either breast on the mammogram or targeted ultrasound. IMPRESSION: NEGATIVE, TARGETED ULTRASOUND NEGATIVE There is no mammographic or targeted sonographic evidence of malignancy. Follow-up with ACR/ACS guidelines. SUMMARY: I discussed these findings with the patient in person at the time of examination. María Gonzalez lpp/penrad:11/26/2014 16:01:58 Whipped Topping Mixer: Marion Graham RT(R)(M), [facility] This exam was dictated and interpreted by [id number] for FLAVIO Sebastian. letter sent: Normal exam [...] with ACR/ACS guidelines. María Gonzalez lpp/penrad:04/23/2014 14:27:01 Whipped Topping Mixer: Marion GALEANA(R)(Kamla), [facility] This exam was dictated and interpreted by [id number] for [place]. letter sent: Normal exam Mammogram BI-RADS: 1 Negative 04/23/2014 - - Read by: María Gonzalez MD Dictated Date/time: 04/23/14 14:27 Electronically Signed by: María Gonzalez MD 04/23/14 14:27 FINAL REPORT [facility] [place] Chest 2 views Chest 2 views CHEST [...] Leatha Nguyen DO 12/19/13 14:47 FINAL REPORT FLAVIO Sebastian Vital Signs Vital Sign Value Date Comments Source Height 177 cm 01/16/2014 [facility] BMI Calculated 35.43 01/16/2014 [facility] Weight 111 01/16/2014 [facility] Heart Rate 57 01/02/2014 [facility] Systolic (mm Hg) 151 01/02/2014 [facility] Diastolic (mm Hg) 71 01/02/2014 [facility] Temperature Oral (F) 97.9 F 01/02/2014 [facility] Diastolic (mm Hg) 78 12/19/2013 [facility] Systolic (mm Hg) 155 12/19/2013 [facility] Heart Rate 56 12/19/2013 [facility] Temperature Oral (F) 98.1 F 12/19/2013 [facility] Height 177 cm 12/18/2013 [facility] BMI Calculated 35.43 12/18/2013 [facility] Weight 111 12/18/2013 [facility] Systolic (mm Hg) 114 06/20/2013 [facility] Temperature Oral (F) 97.8 F 06/20/2013 [facility] Diastolic (mm Hg) 67 06/20/2013 [facility] Respitory Rate 17 06/20/2013 [facility] Heart Rate 46 06/20/2013 [facility] Weight 111.4 06/19/2013 [facility] Height 177.8 cm 06/19/2013 [facility] Respitory Rate 18 04/25/2013 [facility] Systolic (mm Hg) 129 04/25/2013 [facility] Diastolic (mm Hg) 72 04/25/2013 [facility] Temperature Oral (F) 98.2 F 04/25/2013 [facility] Heart Rate 58 04/25/2013 [facility] Weight 111.4 04/24/2013 [facility] Height 177.8 cm 04/24/2013 [facility] Encounters Location Location Details Encounter Type Encounter Number Reason For Visit Attending Provider ADM Date DC Date Status Source [facility] Outpatient [id number] 478.24=ABSCESS, RETROPHARYNGEAL ZAHER SHEBIB 10/11/[address] [facility] [place] [id number] 714.0 WILD [place] 04/25/[address] [facility] [place] [id number] 714.0 WILD [place] 06/19/[address] [facility] [place] [id number] 714.0 WILD [place] 08/15/2013 Active [facility] OP Recurring [id number] Wild [place] 12/12/2013 01/11/2014 [facility] - [place] [facility] [id number] Joshua Schultz 12/19/2013 12/20/2013 [facility] [place] [facility] OP Recurring [id number] Wild [place] 01/16/2014 02/15/2014 [facility] - [place] [facility] [id number] Barbara Dickinson 04/23/2014 04/24/2014 [facility] [place] [facility] Outpatient Imaging - [place] [facility] [id number] Ephraim Krueger 11/26/2014 11/27/2014 [facility] [place] [facility] Outpatient Imaging - [place] [facility] [id number] Peggy Whiting 09/22/2016 09/23/2016 [facility] [place] [facility] Outpatient Imaging - [place] [facility] [id number] Ephraim Krueger 08/08/2017 08/09/2017 [place] [place] [facility] Outpatient Imaging - [place] [facility] [id number] Reid Pierce 10/22/2018 10/23/2018 [facility] [place] Departed Emergency Room [id number] BARRON BERG MD 11/24/2018 11/24/2018 [facility] Outpatient [id number] RETROPHARYNGEAL ABSCESS FAMILIA MILES Cancel [facility] Procedures Procedure Code Date Perfomer Comments Source Computed tomography of brain without radiopaque contrast [id number] 11/24/2018 OT[facility]
--- OUTSIDE RECORDS SUMMARY | 2019-01-18 13:04 | XMS REPORT ---
Author [facility] Address Unknown Phone Unavailable Care Team Providers Care Cash Application Clerk Name Role Phone Willi BERG Unavailable Unavailable Problems This patient has no known problems. Allergies, Adverse Reactions, Alerts This patient has no known allergies or adverse reactions. Medications This patient has no known medications. Results Test Description Test Time Test Comments Text Results Atomic Results Result Comments CT BRAIN WO 2018-11-24 20:56:00 [place] [address] Patient Name: JOSEPH NIELSEN R MR #: [id number] : 1950 Age/Sex: 68/M Req #: [id number] Adm Physician: Ordered by: BARRON BERG MD Report #: [id number] Location: ER Room/Bed: Procedure: [id number] CT/CT BRAIN WO Exam Date: Exam Time: REPORT STATUS: Signed EXAMINATION: Head CT without contrast. HISTORY:High blood pressure. COMPARISON:None. TECHNIQUE: Multidetector axial images were obtained from the foramen magnum to the vertex without contrast. The images were reconstructed using brain and bone algorithms. Thin section brain images were reformatted into coronal and sagittal planes. Dose modulation, iterative reconstruction, and/or weight based adjustment of the mA/kV was utilized to reduce the radiation dose to as low as reasonably achievable. Intravenous contrast: None IMAGE QUALITY: Acceptable. FINDINGS: Skull/scalp: No lytic or blastic. lesions. No surgical changes. Parenchyma: Nonspecific bilateral frontoparietal confluent periventricular and patchy subcortical and deep white matter hypodensity are likely related to small vessel ischemic changes. No acute hemorrhage, mass or acute major vascular territorial infarct. Arteries: No density suggestive of thrombosis. Dural sinuses: No abnormal density suggestive of thrombosis. Ventricles: No hydrocephalus or displacement. Extra- axial spaces: No abnormal density. Brain volume: Normal for age. Craniocervical junction: No mass, Chiari malformation, or basilar invagination. Sella: No mass. Paranasal/mastoid sinuses: Imaged portions unremarkable. IMPRESSION: 1. No acute intracranial abnormality, particularly no acute hemorrhage, mass or acute major vascular territorial infarct. 2. Moderate supratentorial white matter microvascular ischemic changes. 3. Generalized age-related cerebral volume loss. Signed by: Dr. Richa Joaquin M.D. on 11/24/2018 9:01 PM Dictated By: RICHA JOAQUIN MD 00 Transcribed By: SAMINA on 11/24/182100 COPY TO: BARRON BERG MD
--- NOTE | 2019-01-18 13:51 | Diagnostic Imaging Report ---
Exam: Head CT without contrast History: Headache Comparison studies: None Technique: Axial images were obtained from the skull base to the vertex. Coronal and sagittal images reconstructed from the axial data. Dose modulation, iterative reconstruction, and/or weight based adjustment of the mA/kV was utilized to reduce the radiation dose to as low as reasonably achievable. Radiation dose: Total DLP: 1036 mGy*cm. Estimated effective dose: DLP x 0.015 Intravenous contrast: None Findings: Scalp: No abnormalities. Bones: No fractures, blastic or lytic lesions. Brain sulci: Appropriate for age. Ventricles: Normal in size and configuration. No hydrocephalus. Extra-axial spaces: No masses, no fluid collection. Parenchyma: No mass, acute hemorrhage or acute cortical vascular insults. Ill-defined and confluent hypodensities throughout the supratentorial white matter are nonspecific but may reflect chronic microvascular ischemic changes. Sellar/suprasellar region: No abnormalities. Craniocervical junction: Patent foramen magnum. No Chiari one malformation. Included paranasal sinuses: Clear. Middle ear and included mastoid cavities: Clear. Incidental findings: Atherosclerotic calcifications in the carotid siphons. IMPRESSION: 1. No acute abnormalities. 2. No changes from the prior head CT of 11/24/2018. 3. Moderate chronic microvascular ischemic changes. Signed by: Dr. Tyler Mckeon M.D. on 01/18/2019 1:48 PM
[2019-01-18] MEDS ORDERED: KETOROLAC TROMETHAMINE 60 MG/2 ML VIAL IM NR (14:00)
== END 2019-01-18 14:57 | disposition home or self-care (01) ==
LOC: ER 13:00
DX: G44.219 Episodic tension-type headache, not intractable (principal); Z88.0 Allergy status to penicillin; Z88.8 Allergy status to other drugs, medicaments and biological substances; E03.9 Hypothyroidism, unspecified; I10 Essential (primary) hypertension; G62.9 Polyneuropathy, unspecified; M19.90 Unspecified osteoarthritis, unspecified site
CPT/HCPCS: 70450; 99283; J1885

== ENCOUNTER → 2020-04-28 | Day surgery (SDC) | payer MEDICARE, OTHER ==
[2020-04-23 13:37] LABS: BASOPHILS % 0.7 % (0.0-1.0); EOSINOPHILS # (AUTO) 0.2 (0.0-0.4); EOSINOPHILS % 4.6 % (0.0-6.0); HEMATOCRIT 38.7 % (38.2-49.6); HEMOGLOBIN 12.3 g/dL (14.0-18.0); LYMPHOCYTES # (AUTO) 1.3 (1.0-3.2); LYMPHOCYTES % 27.8 % (18.0-39.1); MEAN CORPUSCULAR HGB CONC 31.8 g/dL (31-35); MEAN CORPUSCULAR VOLUME 85.1 fL (81-99); MONOCYTES # (AUTO) 0.5 (0.2-0.8); MONOCYTES % 11.3 % (4.4-11.3); NEUTROPHILS # (AUTO) 2.6 (2.1-6.9); NEUTROPHILS % 55.4 % (38.7-80.0); PLATELET COUNT 160 x10e3/uL (140-360); RED BLOOD COUNT 4.55 x10e6/uL (4.3-5.7); RED CELL DISTRIBUTION WIDTH 12.9 % (11.7-14.4)
[2020-04-23 13:55] LABS: ALANINE AMINOTRANSFERASE 17 IU/L (0-55); ALBUMIN 4.1 g/dL (3.5-5.0); ALBUMIN/GLOBULIN RATIO 1.3 (0.8-2.0); ALKALINE PHOSPHATASE 76 IU/L (40-150); ANION GAP 13.1 mmol/L (8-16); BLOOD UREA NITROGEN 14 mg/dL (7-26); BUN/CREATININE RATIO 15 (6-25); CALCIUM 8.6 mg/dL (8.4-10.2); CARBON DIOXIDE 26 mmol/L (22-29); CHLORIDE 105 mmol/L (98-107); CREATININE, SERUM 0.94 mg/dL (0.72-1.25); EST GLOMERULAR FILTRATION RATE > 60 ML/MIN (60-); GLUCOSE 114 mg/dL (74-118); POTASSIUM 4.1 mmol/L (3.5-5.1); SODIUM 140 mmol/L (136-145)
--- NOTE | 2020-04-23 14:24 | Diagnostic Imaging Report ---
EXAMINATION: PA and lateral views of the chest. COMPARISON: 2 view chest 02/28/2019 CLINICAL HISTORY: Preoperative examination for prostate biopsy DISCUSSION: The lungs are well inflated. No focal airspace consolidation, pleural effusion, or pneumothorax. Stable cardiomediastinal contour with tortuosity of the thoracic aorta. No pulmonary edema. No acute osseous abnormality. Multilevel degenerative disc changes of the thoracic spine. IMPRESSION: No acute cardiopulmonary abnormalities. Signed by: Dr. Tyler Price M.D. on 04/23/2020 2:21 PM
[~2020-04-28] MED LIST changes: +ALLEGRA ALLERG180 MG PO; +APPLE CIDER VI600 MG PO; +DEXAMETHASONE SOD PHOS INJ 4 MG/ML VIAL ONE; +ETOMIDATE 2 MG/ML 10 ML INJ IV ONE; +FENTANYL CITRATE/PF 100MCG/2 ML INJ ONE; +IOPAMIDOL 300MG/ML 50ML INFUS..BTL IV ONE; +LEVOFLOXACIN 500MG/D5W 100ML 100 ML IV ONE; +MEROPENEM 1GM 0 ML IV ONE; +NEPHRO-VITE TABL1 EA PEG; +ONDANSETRON HCL INJ 2MG/ML 2ML 2 MG/ML VIAL ONE; +PROPOFOL IV EMULSION 10 MG/ML 20 ML VIAL ONE; +ROCURONIUM BROMIDE 10 MG/ML 5ML VIAL IV ONE; +SEVOFLURANE INHAL SOLN 250 ML PEN BTL ONE; +SIMETHICONE180 MG PO; +TERAZOSIN HCL1 MG PO; +VITAMIN C100 MG PEG; +VITAMIN D250 MCG PO; +VITAMIN E200 UNIT PO
[2020-04-28 14:15] VITALS: BP 160/90
--- NOTE | 2020-04-29 09:32 | Operative Report ---
DATE OF PROCEDURE: 04/28/2020 SURGEON: Balke Lee MD PREOPERATIVE DIAGNOSIS: Elevated PSA. POSTOPERATIVE DIAGNOSES: Large prostate intravesical component, grade 1 to 2 trabeculation. No tumors or stones. OPERATIONS PERFORMED: Ultrasound of prostate with saturated biopsies and cystoscopy with fulguration. ANESTHESIOLOGIST: Staff. ANESTHESIA: General. FINDINGS: Large prostate, 85.4 g, multiple cysts of the prostate as well as multiple stones. The prostate has a very large posterior component, which pushes up on the bladder. Cystoscopy revealed normal urethra and again, the findings otherwise as dictated above. PROCEDURE IN DETAIL: With the patient under satisfactory general anesthesia, the patient was placed in supine position on the operating table. Legs were placed on stirrups. Genitalia was prepped with Betadine soap and solution and draped in the usual manner. A 60 mL of Betadine solution was then placed in the rectum and the ultrasound rectal probe was placed in without any difficulty. Coronal and sagittal pictures were taken of the prostate. The prostate was examined with the ultrasound. Biopsies were then done right and left side, base, middle and apex of the prostate plus lateral and mid prostatic area. I obtained 2 biopsies from each segment without any difficulty. Once that was done, I removed the ultrasound probe, cystoscope the patient, found 3 areas of bleeding within the prostatic urethra. Using the Bugbee electrode, I fulgurated this area to stop the bleeding. I then looked inside the bladder and noted that there was a very high-riding prostate particularly coming posteriorly up pushing the bladder neck upwards. There were no stones in the bladder and there was grade 1 to 2 trabeculation. At this point, the bladder was filled. Instruments were removed and a 20-Turkish Funez catheter was passed per urethra into the bladder. The bladder was irrigated and after that, the Funez catheter balloon was inflated and irrigated again. No clots were found and the catheter was placed to a leg bag. The patient was then taken to the recovery room in satisfactory condition. DISCHARGE INSTRUCTIONS: The patient was given Levaquin to take once daily. He was given tramadol for pain. He was instructed to return to my office within 24 hours to remove the Funez. I discussed the case with the son, who was in the waiting area. MD ONEL Stephen/RONNIEL /[id number]
== END | disposition home or self-care (01) ==
LOC: OR 09:17
PROVIDERS: ATTEND Urology
DX: N42.31 Prostatic intraepithelial neoplasia (principal); N32.89 Other specified disorders of bladder; N42.83 Cyst of prostate; N42.0 Calculus of prostate; I10 Essential (primary) hypertension; E03.9 Hypothyroidism, unspecified; K44.9 Diaphragmatic hernia without obstruction or gangrene; K21.9 Gastro-esophageal reflux disease without esophagitis; R05 Cough; Z88.1 Allergy status to other antibiotic agents; Z88.8 Allergy status to other drugs, medicaments and biological substances; Z88.0 Allergy status to penicillin; Z01.810 Encounter for preprocedural cardiovascular examination; Z01.812 Encounter for preprocedural laboratory examination; Z01.818 Encounter for other preprocedural examination; Z11.59 Encounter for screening for other viral diseases; Z79.82 Long term (current) use of aspirin
CPT/HCPCS: 36415; 52214; 55700; 71046; 76872; 76998; 80053; 85025; 87086; 88305; 93005; J1100; J1956; J2405; J2704; J3010; Q9967; U0002